=== PATIENT | female | born 1975 | race Caucasian/White ===

== ENCOUNTER 2017-01-12 06:54 | Emergency (ER) | payer OTHER ==
[~2017-01-12] VITALS: Ht 162.6 cm; Wt 50.0 kg
[~2017-01-12 06:54] MED LIST: FIORTAB4 PO
[2017-01-12 06:55] VITALS: BP 114/73; PULSE 81; RESP 16; TEMP 98.5; O2SAT 99
[2017-01-12 08:01] LABS: BASOPHIL # 0.1 TH/MM3 (0-0.2); BASOPHIL % 0.6 % (0.0-2.0); EOSINOPHIL # 0.1 TH/MM3 (0-0.4); EOSINOPHIL % 0.8 % (0.0-4.0); HEMATOCRIT 41.4 % (35.0-46.0); HEMO FLAGS DIFF FINAL; LYMPH % 18.1 % (9.0-44.0); LYMPHOCYTE # 1.7 TH/MM3 (1.0-4.8); MEAN CELL VOLUME 84.9 FL (80.0-100.0); MEAN CORPUSCULAR HEMOGLOBIN 28.3 PG (27.0-34.0); MEAN CORPUSCULAR HGB CONC 33.3 % (32.0-36.0); MONO % 5.1 % (0.0-8.0); NEUT % 75.4 % (16.0-70.0); PLATELET COUNT 321 TH/MM3 (150-450); RED BLOOD COUNT 4.88 MIL/MM3 (4.00-5.30); RED CELL DISTRIBUTION WIDTH 13.7 % (11.6-17.2); WHITE BLOOD COUNT 9.3 TH/MM3 (4.0-11.0)
[2017-01-12 08:14] LABS: BACTERIA, URINE OCC /hpf; BLOOD, URINE SMALL (NEG); COMMENT (UR) CULTURE INDICATED; CULTURE IF INDICATED CULTURE INDICATED; GLUCOSE,URINE NEG (NEG); KETONE, URINE 150 mg/dL (NEG); MUCUS URINE FEW /lpf (OCC); NITRITE,URINE NEG (NEG); SQUAMOUS EPITHELIAL CELL URINE 23 /hpf (0-5); TRIPLE PHOSPHATE CRYSTAL,URINE MANY /hpf; URINE COLOR YELLOW (YELLW/STRAW)
[2017-01-12 08:18] LABS: BICARBONATE 27.9 MEQ/L (21.0-32.0); POTASSIUM 4.1 MEQ/L (3.5-5.1)
[2017-01-12] MEDS ORDERED: ONDANSETRON HCL 4 MG/2 ML VIAL IV PUSH ONE (08:45)
[2017-01-12] MEDS ORDERED: SODIUM CHLOR 0.9% 1000 ML INJ 1,000 ML IV ONE (08:45)
[2017-01-12] MEDS ORDERED: MORPHINE SULFATE 4 MG/ML INJ IV PUSH ONE (08:45)
[2017-01-12] MEDS ORDERED: LOPERAMIDE HCL 2 MG CAP PO ONE (08:45)
[2017-01-12] MEDS ORDERED: ONDA4TAB7 SL (09:06)
[2017-01-12] MEDS ORDERED: LOPE2CAP PO (09:06)
--- NOTE | 2017-01-12 09:06 | PD ---
HPI Chief Complaint: GI Complaint Time Seen by Provider: 08:31 Travel History International Travel<30 days: No Contact w/Intl Traveler<30days: No Traveled to known affect area: No History of Present Illness HPI Is a 41-year-old woman who presents to the emergency department nausea vomiting diarrhea that started about 2:00. She's had more episodes of vomiting that appear to have now resolved. She still having copious watery diarrhea. She also some epigastric abdominal cramping. She is otherwise been feeling one healthy. No sick contacts. No definite contaminated foods. She's not been on antibiotics recently. 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 History Past Medical History Narrative Medical Recent concussion Social History Alcohol Use: Yes (rarely drinks alcohol) Tobacco Use: Yes (rarely smokes) Allergies-Medications (Allergen,Severity, Reaction): Coded Allergies: No Known Allergies (Verified , 01/12/17) Reported Meds & Prescriptions Reported Meds & Active Scripts Active No Active Prescriptions or Reported Medications Review of Systems Except as stated in HPI: all other systems reviewed are Neg Physical Exam Narrative GENERAL: Well-appearing 41 year-old woman, no acute distress. SKIN: Focused skin assessment warm/dry. NECK: Trachea midline. No JVD. CARDIOVASCULAR: Regular rate and rhythm. No murmur appreciated. RESPIRATORY: No accessory muscle use. Clear to auscultation. Breath sounds equal bilaterally. GASTROINTESTINAL: Abdomen soft, non-tender, nondistended. Hepatic and splenic margins not palpable. MUSCULOSKELETAL: No obvious deformities. No clubbing. No cyanosis. No edema. NEUROLOGICAL: Awake and alert. No obvious cranial nerve deficits. Motor grossly within normal limits. Normal speech. PSYCHIATRIC: Appropriate mood and affect; insight and judgment normal. Data Data Last Documented VS Vital Signs Date Time Temp Pulse Resp B/P (MAP) Pulse Ox O2 Delivery O2 Flow Rate FiO2 01/12/17 06:55 98.5 81 16 114/73 (87) 99 Orders Orders Complete Blood Count With Diff (01/12/17 07:35) Basic Metabolic Panel (Bmp) (01/12/17 07:35) Urinalysis - C+S If Indicated (01/12/17 07:35) Ed Urine Pregnancytest Poc (01/12/17 07:35) Urine Culture (01/12/17 07:15) Loperamide (Imodium) (01/12/17 08:45) Ondansetron Inj (Zofran Inj) (01/12/17 08:45) Morphine Inj (Morphine Inj) (01/12/17 08:45) Sodium Chlor 0.9% 1000 Ml Inj (Ns 1000 M (01/12/17 08:45) Iv Access Insert/Monitor (01/12/17 08:37) Labs Laboratory Tests Test 01/12/17 07:15 01/12/17 07:45 Urine Color YELLOW Urine Turbidity CLOUDY Urine pH 8.0 Urine Specific [place] 1.023 Urine Protein TRACE mg/dL Urine Glucose (UA) NEG mg/dL Urine Ketones 150 mg/dL Urine Occult Blood SMALL Urine Nitrite NEG Urine Bilirubin NEG Urine Urobilinogen LESS THAN 2.0 MG/DL Urine Leukocyte Esterase NEG Urine RBC 4 /hpf Urine WBC 2 /hpf Urine Squamous Epithelial Cells 23 /hpf Urine Triple Phosphate Crystals MANY /hpf Urine Amorphous Sediment RARE Urine Bacteria OCC /hpf Urine Mucus FEW /lpf Microscopic Urinalysis Comment CULTURE INDICATED White Blood Count 9.3 TH/MM3 Red Blood Count 4.88 MIL/MM3 Hemoglobin 13.8 GM/DL Hematocrit 41.4 % Mean Corpuscular Volume 84.9 FL Mean Corpuscular Hemoglobin 28.3 PG Mean Corpuscular Hemoglobin Concent 33.3 % Red Cell Distribution Width 13.7 % Platelet Count 321 TH/MM3 Mean Platelet Volume 7.2 FL Neutrophils (%) (Auto) 75.4 % Lymphocytes (%) (Auto) 18.1 % Monocytes (%) (Auto) 5.1 % Eosinophils (%) (Auto) 0.8 % Basophils (%) (Auto) 0.6 % Neutrophils # (Auto) 7.0 TH/MM3 Lymphocytes # (Auto) 1.7 TH/MM3 Monocytes # (Auto) 0.5 TH/MM3 Eosinophils # (Auto) 0.1 TH/MM3 Basophils # (Auto) 0.1 TH/MM3 CBC Comment DIFF FINAL Differential Comment Blood Urea Nitrogen 8 MG/DL Creatinine 0.63 MG/DL Random Glucose 109 MG/DL Calcium Level 8.8 MG/DL Sodium Level 139 MEQ/L Potassium Level 4.1 MEQ/L Chloride Level 106 MEQ/L Carbon Dioxide Level 27.9 MEQ/L Anion Gap 5 MEQ/L Estimat Glomerular Filtration Rate 105 ML/MIN [facility] Medical Decision Making Medical Screen Exam Complete: Yes Emergency Medical Condition: Yes Interpretation(s) LABS: CBC is unremarkable. BMP is unremarkable. UA is generally unremarkable. Differential Diagnosis Acute gastroenteritis, nausea vomiting, food poisoning, other Narrative Course Medical decision making 41 year-old woman presents with nausea vomiting diarrhea. Likely gastroenteritis. Looks well. We'll rehydrate, symptom medical treatment. Diagnosis Primary Impression: Gastroenteritis Additional Instructions: Follow-up with her primary doctor next 2-4 days. Return to the emergency department for any worsening abdominal pain, dehydration , high fevers, bloody diarrhea, or any other new or worsening symptoms. Take medications as prescribed. Med/Other Pt SpecificInfo: No Change to Meds Scripts Ondansetron Odt (Ondansetron Odt) 4 Mg Tab 4 MG SL Q6HR Y for Nausea/Vomiting, #15 TAB 0 Refills Prov: Steve Liang MD 01/12/17 Loperamide (Loperamide) 2 Mg Cap 2 MG PO DIRECTED Y for DIARRHEA, #6 CAP 0 Refills One capsule after each loose stool. Not to exceed 8 capsules per day. Prov: Steve Liang MD 01/12/17 Disposition: 01 DISCHARGE HOME Condition: Stable Steve Liang MD Jan 12, 2017 09:06
== END 2017-01-12 10:03 | disposition home or self-care (01) ==
LOC: NEPE 06:54
DX: K52.9 Noninfective gastroenteritis and colitis, unspecified (principal); R82.71 Bacteriuria; Z72.0 Tobacco use
CPT/HCPCS: 80048; 81001; 84703; 85025; 87086; 96374; 96375; 99284; J2270; J2405; J7030

== ENCOUNTER 2017-06-23 13:08 | Emergency (ER) | payer SELFPAY ==
[~2017-06-23] VITALS: Ht 162.6 cm; Wt 55.9 kg
[~2017-06-23 13:08] MED LIST changes: -FIORTAB4 PO; +LOPE2CAP PO; +ONDA4TAB7 SL
[2017-06-23 13:21] VITALS: BP 131/87; PULSE 67; RESP 16; TEMP 98.2; O2SAT 98
[2017-06-23 13:52] LABS: BILIRUBIN, URINE NEG (NEG); BLOOD, URINE SMALL (NEG); GLUCOSE,URINE NEG (NEG); KETONE, URINE TRACE mg/dL (NEG); NITRITE,URINE NEG (NEG); PH, URINE 7.5 (5.0-8.5); URINE LEUKOCYTE ESTERASE NEG (NEG)
--- NOTE | 2017-06-23 13:54 | PD ---
HPI Chief Complaint: GI Complaint Time Seen by Provider: 13:49 Travel History International Travel<30 days: No Contact w/Intl Traveler<30days: No Traveled to known affect area: No History of Present Illness HPI Patient states that while she was at work she developed onset of lightheadedness , dizziness and, room spinning sensation that came on suddenly. Currently still feels that very slightly when she moves her head. Patient denies any associated factors such as fever, headache, photophobia, rash, nausea, vomiting , diarrhea, abdominal pain, chest pain, back pain. No known drug allergy Past medical and surgical history significant for headache, hysterectomy performed due to large mass that was adherent to her uterus turned out not to be malignant, occasional alcohol and tobacco use. PFSH Past Medical History Headaches: Yes ?: Not Past Surgical History Gynecologic Surgery: Yes Hysterectomy: Yes Social History Alcohol Use: Yes (rarely drinks alcohol) Tobacco Use: Yes (rarely smokes) Substance Use: No Allergies-Medications (Allergen,Severity, Reaction): Coded Allergies: No Known Allergies (Verified Adverse Reaction, Unknown, 06/23/17) Reported Meds & Prescriptions Reported Meds & Active Scripts Active No Active Prescriptions or Reported Medications Review of Systems General / Constitutional: No: Fever Eyes: No: Visual changes HENT: Positive: Vertigo, Lightheadedness Cardiovascular: No: Chest Pain or Discomfort Respiratory: No: Shortness of Breath Gastrointestinal: No: Abdominal Pain Genitourinary: No: Dysuria Musculoskeletal: No: Pain Skin: No Rash Neurologic: No: Weakness Psychiatric: No: Depression Endocrine: No: Polydipsia Hematologic/Lymphatic: No: Easy Bruising Physical Exam Narrative GENERAL: SKIN: Warm and dry. HEAD: Atraumatic. Normocephalic. EYES: Pupils equal and round. No scleral icterus. No injection or drainage. Lateral nystagmus that is fatigable, no rotary or vertical component. ENT: No nasal bleeding or discharge. Mucous membranes pink and moist. NECK: Trachea midline. No JVD. CARDIOVASCULAR: Regular rate and rhythm. RESPIRATORY: No accessory muscle use. Clear to auscultation. Breath sounds equal bilaterally. GASTROINTESTINAL: Abdomen soft, non-tender, nondistended. MUSCULOSKELETAL: Extremities without clubbing, cyanosis, or edema. No obvious deformities. NEUROLOGICAL: Awake and alert. No obvious cranial nerve deficits. Motor grossly within normal limits. Five out of 5 muscle strength in the arms and legs. Normal speech. PSYCHIATRIC: Appropriate mood and affect; insight and judgment normal. Data Data Last Documented VS Vital Signs Date Time Temp Pulse Resp B/P (MAP) Pulse Ox O2 Delivery O2 Flow Rate FiO2 06/23/17 13:21 98.2 67 16 131/87 (102) 98 Orders Orders Urinalysis - C+S If Indicated (06/23/17 13:33) Electrocardiogram (06/23/17 13:50) Complete Blood Count With Diff (06/23/17 13:50) Comprehensive Metabolic Panel (06/23/17 13:50) Ckmb (Isoenzyme) Profile (06/23/17 13:50) Troponin I (06/23/17 13:50) B-Type Natriuretic Peptide (06/23/17 13:50) Prothrombin Time / Inr (Pt) (06/23/17 13:50) Act Partial Throm Time (Ptt) (06/23/17 13:50) Lipase (06/23/17 13:50) Thyroid Stimulating Hormone (06/23/17 13:50) Chest, Single Ap (06/23/17 13:50) Ct Brain W/O Iv Contrast(Rout) (06/23/17 13:50) Drug Screen, Random Urine (06/23/17 13:50) Alcohol (Ethanol) (06/23/17 13:50) Meclizine (Antivert) (06/23/17 14:15) Labs Laboratory Tests Test 06/23/17 13:43 06/23/17 14:35 Urine Collection Type CLEAN CATCH Urine Color YELLOW Urine Turbidity CLEAR Urine pH 7.5 Urine Specific [place] 1.011 Urine Protein NEG mg/dL Urine Glucose (UA) NEG mg/dL Urine Ketones TRACE mg/dL Urine Occult Blood SMALL Urine Nitrite NEG Urine Bilirubin NEG Urine Leukocyte Esterase NEG Urine RBC 0-3 /hpf Urine WBC 0-2 /hpf Urine Squamous Epithelial Cells 0-5 /hpf Urine Transitional Epithelial Cells 0-5 /hpf Urine Bacteria FEW /hpf Microscopic Urinalysis Comment CULT NOT INDICATED White Blood Count 11.8 TH/MM3 Red Blood Count 4.79 MIL/MM3 Hemoglobin 13.1 GM/DL Hematocrit 40.2 % Mean Corpuscular Volume 83.9 FL Mean Corpuscular Hemoglobin 27.4 PG Mean Corpuscular Hemoglobin Concent 32.7 % Red Cell Distribution Width 13.2 % Platelet Count 277 TH/MM3 Mean Platelet Volume 8.1 FL Neutrophils (%) (Auto) 74.8 % Lymphocytes (%) (Auto) 17.6 % Monocytes (%) (Auto) 5.9 % Eosinophils (%) (Auto) 0.8 % Basophils (%) (Auto) 0.9 % Neutrophils # (Auto) 8.8 TH/MM3 Lymphocytes # (Auto) 2.1 TH/MM3 Monocytes # (Auto) 0.7 TH/MM3 Eosinophils # (Auto) 0.1 TH/MM3 Basophils # (Auto) 0.1 TH/MM3 CBC Comment DIFF FINAL Differential Comment Prothrombin Time 11.4 SEC Prothromb Time International Ratio 1.1 RATIO Activated Partial Thromboplast Time 30.7 SEC Blood Urea Nitrogen 8 MG/DL Creatinine 0.66 MG/DL Random Glucose 88 MG/DL Total Protein 7.5 GM/DL Albumin 3.9 GM/DL Calcium Level 9.0 MG/DL Alkaline Phosphatase 72 U/L Aspartate Amino Transf (AST/SGOT) 14 U/L Alanine Aminotransferase (ALT/SGPT) 11 U/L Total Bilirubin 0.3 MG/DL Sodium Level 138 MEQ/L Potassium Level 3.6 MEQ/L Chloride Level 105 MEQ/L Carbon Dioxide Level 26.7 MEQ/L Anion Gap 6 MEQ/L Estimat Glomerular Filtration Rate 99 ML/MIN Total Creatine Kinase 65 U/L Troponin I LESS THAN 0.02 NG/ML B-Type Natriuretic Peptide 18 PG/ML Lipase 88 U/L Thyroid Stimulating Hormone 3rd Gen 1.840 uIU/ML Urine Opiates Screen NEG Urine Barbiturates Screen NEG Urine Amphetamines Screen NEG Urine Benzodiazepines Screen NEG Urine Cocaine Screen NEG Urine Cannabinoids Screen POS Ethyl Alcohol Level LESS THAN 3 MG/DL [facility] Medical Decision Making Medical Screen Exam Complete: Yes Emergency Medical Condition: Yes Medical Record Reviewed: Yes Interpretation(s) EKG shows normal sinus rhythm, 60 bpm, normal intervals, however incomplete right bundle branch block pattern noted., Some slight motion artifact, however no evidence of any STEMI pattern noted. Differential Diagnosis Dehydration versus anemia versus electrolyte abnormality versus Narrative Course CBC shows no anemia and normal platelet count, WBC is only 11.8 and there is no major left shift so therefore this is a reactive leukocytosis. Coagulation profile is within normal limits. Urinalysis is not consistent with any UTI. Chemistry profile shows normal electrolytes, normal kidney functions, normal liver function tests, negative troponin, negative beta natruretic peptide, normal TSH. Toxicology essentially negative, alcohol negative as well Diagnosis Primary Impression: nearsyncope due to peripheral vertigo Patient Instructions: General Instructions, Vertigo (DC) Scripts Meclizine (Meclizine) 25 Mg Tab 50 MG PO TID Y for VERTIGO, #20 TAB 0 Refills Prov: Brooks Henriquez MD 06/23/17 Disposition: 01 DISCHARGE HOME Condition: Stable Brooks Henriquez MD Jun 23, 2017 13:54
[2017-06-23 13:55] LABS: URINE COLOR YELLOW (YELLW/STRAW)
[2017-06-23 13:58] LABS: RBC, URINE 0-3 /hpf (0-3); SQUAMOUS EPITHELIAL CELL URINE 0-5 /hpf (0-5); TRANSITIONAL EPI CELLS, URINE 0-5 /hpf; WBC, URINE 0-2 /hpf (0-5)
[2017-06-23 13:59] LABS: BACTERIA, URINE FEW /hpf
[2017-06-23] MEDS ORDERED: MECLIZINE HCL 25 MG TAB PO ONE (14:15)
--- NOTE | 2017-06-23 14:15 | RADRPT ---
EXAM DATE/TIME: 06/23/2017 13:59 [facility] COMPARISON: CHEST PA & LAT, April 08, 2016, 4:59. INDICATIONS : Shortness of breath, lightheadedness, nausea, and vomiting. MEDICAL HISTORY : None. SURGICAL HISTORY : Hysterectomy. ENCOUNTER: Initial ACUITY: 1 day PAIN SCORE: 0/10 LOCATION: Bilateral chest FINDINGS: A single view of the chest demonstrates the lungs to be symmetrically aerated without evidence of mas s, infiltrate or effusion. The cardiomediastinal contours are unremarkable. Osseous structures are intact. CONCLUSION: The lungs are clear. Braden Corrigan MD on June 23, 2017 at 14:11 Board Certified Radiologist. This report was verified electronically.
[2017-06-23 14:47] LABS: AUTOMATED NEUTROPHIL # 8.8 TH/MM3 (1.8-7.7); BASOPHIL # 0.1 TH/MM3 (0-0.2); BASOPHIL % 0.9 % (0.0-2.0); EOSINOPHIL # 0.1 TH/MM3 (0-0.4); EOSINOPHIL % 0.8 % (0.0-4.0); HEMATOCRIT 40.2 % (35.0-46.0); HEMOGLOBIN 13.1 GM/DL (11.6-15.3); LYMPH % 17.6 % (9.0-44.0); LYMPHOCYTE # 2.1 TH/MM3 (1.0-4.8); MEAN CELL VOLUME 83.9 FL (80.0-100.0); MEAN CORPUSCULAR HEMOGLOBIN 27.4 PG (27.0-34.0); MEAN CORPUSCULAR HGB CONC 32.7 % (32.0-36.0); MEAN PLATELET VOLUME 8.1 FL (7.0-11.0); MONO % 5.9 % (0.0-8.0); MONOCYTE # 0.7 TH/MM3 (0-0.9); NEUT % 74.8 % (16.0-70.0); PLATELET COUNT 277 TH/MM3 (150-450); RED BLOOD COUNT 4.79 MIL/MM3 (4.00-5.30); RED CELL DISTRIBUTION WIDTH 13.2 % (11.6-17.2); WHITE BLOOD COUNT 11.8 TH/MM3 (4.0-11.0)
[2017-06-23 14:54] LABS: CHLORIDE 105 MEQ/L (98-107); SODIUM (NA) 138 MEQ/L (136-145)
[2017-06-23 14:58] LABS: ALBUMIN 3.9 GM/DL (3.4-5.0); BICARBONATE 26.7 MEQ/L (21.0-32.0); BLOOD UREA NITROGEN 8 MG/DL (7-18); GLUCOSE,RANDOM 88 MG/DL (74-106)
[2017-06-23 15:00] LABS: INTERNATIONAL NORMALIZED RATIO 1.1 RATIO; PROTHROMBIN TIME - PATIENT 11.4 SEC (9.8-11.6)
[2017-06-23 15:01] LABS: ALT (GPT) 11 U/L (10-53); AST (GOT) 14 U/L (15-37); CREATININE 0.66 MG/DL (0.50-1.00); GLOMERULAR FILTRATION RATE 99 ML/MIN (>89)
[2017-06-23 15:02] LABS: TOTAL BILIRUBIN ADULT 0.3 MG/DL (0.2-1.0); TOTAL PROTEIN 7.5 GM/DL (6.4-8.2)
[2017-06-23 15:04] LABS: ALKALINE PHOSPHATASE 72 U/L (45-117)
[2017-06-23 15:06] LABS: TROPONIN I LESS THAN 0.02 NG/ML (0.02-0.05)
--- NOTE | 2017-06-23 15:08 | RADRPT ---
EXAM DATE/TIME: 06/23/2017 14:51 [facility] COMPARISON: No previous studies available for comparison. INDICATIONS : Near syncopal episode. Lightheaded. Dizzy. RADIATION DOSE: 54.83 CTDIvol (mGy) ; Patient motion MEDICAL HISTORY : None SURGICAL HISTORY : Hysterectomy. ENCOUNTER: Initial ACUITY: 1 day PAIN SCALE: 0/10 LOCATION: cranial TECHNIQUE: Multiple contiguous axial images were obtained of the head. Using automated exposure control and adj ustment of the mA and/or kV according to patient size, radiation dose was kept as low as reasonably a chievable to obtain optimal diagnostic quality images. DICOM format image data is available electro nically for review and comparison. FINDINGS: CEREBRUM: The ventricles are normal for age. No evidence of midline shift, mass lesion, hemorrhage or acute in farction. No extra-axial fluid collections are seen. POSTERIOR FOSSA: The cerebellum and brainstem are intact. The 4th ventricle is midline. The cerebellopontine angle i s unremarkable. EXTRACRANIAL: The visualized portion of the orbits is intact. SKULL: The calvaria is intact. No evidence of skull fracture. CONCLUSION: 1. No acute findings in the brain. Braden Corrigan MD on June 23, 2017 at 15:06 Board Certified Radiologist. This report was verified electronically.
[2017-06-23] MEDS ORDERED: MECL-62 PO (15:25)
--- NOTE | 2017-06-24 14:35 | EKG ---
Date Performed: 06/23/2017 Time Performed: 13:59:09 PTAGE: 41 years EKG: Sinus rhythm POSSIBLE RIGHT VENTRICULAR CONDUCTION DELAY BORDERLINE ECG PREVIOUS TRACING : 04/08/2016 04.39 Possible pacing spike in the midst of the QRS complex. Clin ical correlation to see if the patient has a pacemaker will be important, but if so, there is likely pacemaker fusion in the AV delay of the device. Could possibly be adjusted. Since the prior tracing, there is no significant serial change. DOCTOR: Miya Malave Interpretating Date/Time 06/24/2017 14:33:22
== END 2017-06-23 15:40 | disposition home or self-care (01) ==
LOC: PHED 13:08
DX: R55 Syncope and collapse (principal); R42 Dizziness and giddiness; D72.829 Elevated white blood cell count, unspecified; I45.10 Unspecified right bundle-branch block; F12.90 Cannabis use, unspecified, uncomplicated; Z72.0 Tobacco use
CPT/HCPCS: 70450; 71045; 80053; 80307; 81001; 82550; 83690; 83880; 84443; 84484; 84703; 85025; 85610; 85730; 93005; 99285

== ENCOUNTER 2017-07-20 19:28 | Emergency (ER) | payer SELFPAY ==
[~2017-07-20 19:28] MED LIST changes: -LOPE2CAP PO; +MECL-62 PO; -ONDA4TAB7 SL
[2017-07-20 19:53] VITALS: BP 137/76; PULSE 105; RESP 20; TEMP 100; O2SAT 99
--- NOTE | 2017-07-20 20:44 | RADRPT ---
EXAM DATE/TIME: 07/20/2017 20:02 [facility] COMPARISON: CHEST PA & LAT, April 08, 2016, 4:59. INDICATIONS : Patient complains of cough and shortness of breath. MEDICAL HISTORY : None. SURGICAL HISTORY : None. ENCOUNTER: Initial ACUITY: 4 - 6 days PAIN SCORE: 1/10 LOCATION: chest FINDINGS: PA and lateral views of the chest demonstrate the lungs to be symmetrically aerated without evidence of mass, infiltrate or effusion. The cardiomediastinal contours are unremarkable. Osseous structure s are intact. CONCLUSION: No acute disease. Nathaniel Saunders MD on July 20, 2017 at 20:41 Board Certified Radiologist. This report was verified electronically.
== END 2017-07-20 23:00 | disposition left against medical advice (07) ==
LOC: NED 19:28
DX: R05 Cough (principal); Z53.21 Procedure and treatment not carried out due to patient leaving prior to being seen by health care provider
CPT/HCPCS: 71046; 99281